=== PATIENT | female | born 1955 | race Caucasian/White ===

== ENCOUNTER 2019-04-14 20:15 | Emergency (ER) | payer OTHER ==
[~2019-04-14] VITALS: Ht 160 cm; Wt 86.2 kg
[~2019-04-14 20:15] MED LIST: ALBUTEROL2.5 MG/0.5 INH; ALEVE220 M1 PO; AMOXICILLIN 50500 M1 PO; ANAPROX DS550 MG PO; AVELOX 400 MG400 MG PO; BENADRYL25 MG PO; CLONAZEPAM 0.50.5 M1 PO; COUMADIN 10MG T10 M1 PO; DESYREL100 MG PO; DILAUDID 4 MG TA4 M1 PO; EFFEXOR XR75 MG PO; FLONASE 0.05%50 MCG NASAL; FOLIC ACID 1 MG1 MG PO; HYDROCHLOROTHIA25 M1 PO; KLOR-CON 1010 MEQ PO; LAMICTAL 25 MG25 MG PO; LAMICTAL ODT50 MG PO; LEVSIN0.125 MG PO; LISINOPRIL-HCT1 EAC1 PO; LISINOPRIL-HCT1 EAC2 PO; LOVENOX SUBQ; MEDROLDOSEPACK; MOBIC7.5 MG PO; MORPHINE SULFAT30 M4 PO; MS CONTIN30 MG PO; NAPROSYN500 MG PO; NORCO 5-325 TA1 EACH PO; OXYCODONE-ACET1 EACH PO; OXYCONTIN20 M1 PO; PAXIL10 MG; PEPCID AC20 MG PO; PERCOCET 10-321 EACH PO; PERCOCET 5-3251 EACH; PERCOCET 5-3251 EACH PO; PERCOCET PO; PRILOSEC 20 MG20 MG PO; PRISTIQ50 MG PO; RISPERDAL 1 MG T1 MG PO; RISPERIDONE0.5 MG PO; TESSALON PERLE100 MG PO; TINACTIN108 GM TOP; TOPAMAX100 MG PO; TRAZODONE HCL100 MG PO; VITAMIN B-12500 MCG PO; VITAMIN D32000 UNI1 PO; VOLTAREN GEL 1100 G2 TOP; XANAX 0.5 MG0.5 M1 PO; XANAX XR0.5 MG PO; ZOFRAN ODT4 MG PO; ZOFRAN4 MG PO
[2019-04-14 20:42] LABS: URINE BILIRUBIN NEGATIVE (Negative); URINE BLOOD NEGATIVE (Negative); URINE CLARITY CLEAR; URINE COLOR YELLOW; URINE GLUCOSE-RANDOM* NEGATIVE (Negative); URINE KETONES NEGATIVE (Negative); URINE NITRITE-REFLEX NEGATIVE (Negative); URINE PROTEIN (DIPSTICK) NEGATIVE (Negative); URINE UROBILINOGEN 0.2 E.U./dl (0.2-1.0)
[2019-04-14 20:44] LABS: URINE LEUKOCYTES-REFLEX 1+ (Negative)
[2019-04-14 20:54] LABS: BACTERIA-REFLEX None Seen /HPF (None Seen); CASTS None Seen /LPF (None Seen); CRYSTALS None Seen /LPF (None Seen); SQUAMOUS 4-10 Moderate /LPF (0-3); URINE RBC None Seen /HPF (0-2); URINE WBC-REFLEX 6-15 Few /HPF (0-5)
[2019-04-14] MEDS ORDERED: LYRICA150 MG PO (21:05)
[2019-04-14 21:21] LABS: BASOPHILS 0.9 % (0.0-2.0); EOSINOPHILS 0.9 % (0.0-3.0); HEMATOCRIT 43.9 % (37.0-47.0); HEMOGLOBIN 15.1 gm/dL (12.0-15.0); LYMPHOCYTES 29.8 % (24.0-44.0); MCH 32.9 pg (26.0-34.0); MCHC 34.3 g/dL (28.0-37.0); MONOCYTES 9.9 % (1.0-8.0); PLATELET COUNT 153 thou/uL (150-400); POLYS 58.5 % (36.0-66.0); RBC 4.58 mil/uL (4.20-5.00); RDW 13.3 % (10.5-14.5); WBC 6.9 thou/uL (4.0-11.0)
[2019-04-14 21:29] LABS: CALCIUM 9.3 mg/dL (8.5-10.1); CREATININE 1.4 mg/dL (0.6-1.0); POTASSIUM 3.5 mmol/L (3.5-5.1)
[2019-04-14 21:36] LABS: ALBUMIN 3.6 g/dL (3.4-5.0); TOTAL BILIRUBIN 0.4 mg/dL (<0.1-1.0); TOTAL PROTEIN 7.1 g/dL (6.4-8.2)
[2019-04-14] MEDS ORDERED: NAPROSYN500 MG PO (22:58)
[2019-04-15 00:19] VITALS: BP 151/80
== END 2019-04-15 | disposition home or self-care (01) ==
LOC: ER 20:15
PROVIDERS: Emergency Medicine; Physician Assistant
DX: N93.8 Other specified abnormal uterine and vaginal bleeding (principal); R10.2 Pelvic and perineal pain; F31.9 Bipolar disorder, unspecified; I10 Essential (primary) hypertension; M19.90 Unspecified osteoarthritis, unspecified site; J45.909 Unspecified asthma, uncomplicated; Z86.711 Personal history of pulmonary embolism; Z86.718 Personal history of other venous thrombosis and embolism; Z88.0 Allergy status to penicillin; Z88.1 Allergy status to other antibiotic agents

== ENCOUNTER 2019-05-13 21:17 | Emergency (ER) | payer OTHER ==
[~2019-05-13] VITALS: Ht 165.1 cm; Wt 72.6 kg
[~2019-05-13 21:17] MED LIST changes: +LYRICA150 MG PO
[2019-05-13 22:08] LABS: ABSOLUTE NEUTROPHILS 3.8 thou/uL (1.4-8.2); BASOPHILS 1.1 % (0.0-2.0); HEMATOCRIT 47.9 % (37.0-47.0); HEMOGLOBIN 16.1 gm/dL (12.0-15.0); LYMPHOCYTES 34.5 % (24.0-44.0); MCH 32.6 pg (26.0-34.0); MCHC 33.7 g/dL (28.0-37.0); MCV 96.7 fL (80.0-100.0); MONOCYTES 8.7 % (1.0-8.0); PLATELET COUNT 157 thou/uL (150-400); POLYS 54.7 % (36.0-66.0); RBC 4.95 mil/uL (4.20-5.00)
[2019-05-13 22:34] LABS: CALCIUM 9.7 mg/dL (8.5-10.1); CREATININE 1.2 mg/dL (0.6-1.0); POTASSIUM 3.2 mmol/L (3.5-5.1)
[2019-05-13 22:34] LABS: URINE BILIRUBIN NEGATIVE (Negative); URINE BLOOD NEGATIVE (Negative); URINE CLARITY CLEAR; URINE COLOR YELLOW; URINE GLUCOSE-RANDOM* NEGATIVE (Negative); URINE KETONES NEGATIVE (Negative); URINE LEUKOCYTES-REFLEX NEGATIVE (Negative); URINE NITRITE-REFLEX NEGATIVE (Negative); URINE PROTEIN (DIPSTICK) NEGATIVE (Negative); URINE SPECIFIC GRAVITY <= 1.005 (1.005-1.035); URINE UROBILINOGEN 0.2 E.U./dl (0.2-1.0)
[2019-05-13] MEDS ORDERED: IBUPROFEN 800800 M1 PO (23:10)
[2019-05-14 00:56] VITALS: BP 154/86
== END 2019-05-14 00:56 | disposition home or self-care (01) ==
LOC: ER 21:17
PROVIDERS: Nurse Practitioner Family
DX: R10.2 Pelvic and perineal pain (principal); R10.84 Generalized abdominal pain; F31.9 Bipolar disorder, unspecified; M19.90 Unspecified osteoarthritis, unspecified site; I10 Essential (primary) hypertension; J45.909 Unspecified asthma, uncomplicated; Z88.0 Allergy status to penicillin; Z88.1 Allergy status to other antibiotic agents; Z98.890 Other specified postprocedural states; Z86.711 Personal history of pulmonary embolism

== ENCOUNTER 2019-05-27 22:14 | Emergency (ER) | payer OTHER ==
[~2019-05-27] VITALS: Ht 160 cm; Wt 88.5 kg
[~2019-05-27 22:14] MED LIST changes: +IBUPROFEN 800800 M1 PO
[2019-05-27 23:25] LABS: ABSOLUTE NEUTROPHILS 2.8 thou/uL (1.4-8.2); BASOPHILS 0.7 % (0.0-2.0); EOSINOPHILS 1.9 % (0.0-3.0); HEMATOCRIT 45.7 % (37.0-47.0); HEMOGLOBIN 15.2 gm/dL (12.0-15.0); LYMPHOCYTES 39.5 % (24.0-44.0); MCHC 33.2 g/dL (28.0-37.0); MCV 96.4 fL (80.0-100.0); MONOCYTES 9.6 % (1.0-8.0); PLATELET COUNT 163 thou/uL (150-400); POLYS 48.3 % (36.0-66.0); RBC 4.74 mil/uL (4.20-5.00); RDW 13.1 % (10.5-14.5); WBC 5.8 thou/uL (4.0-11.0)
[2019-05-27 23:33] LABS: ANION GAP 5 mmol/L (7-16); BUN 21 mg/dL (7-18); CALCIUM 9.2 mg/dL (8.5-10.1); CHLORIDE 106 mmol/L (98-107); CO2 33 mmol/L (21-32); CREATININE 1.2 mg/dL (0.6-1.0); GLUCOSE 117 mg/dL (74-106); POTASSIUM 3.3 mmol/L (3.5-5.1); SODIUM 144 mmol/L (136-145)
[2019-05-27 23:45] LABS: ALBUMIN 3.4 g/dL (3.4-5.0); SGOT 18 U/L (15-37); SGPT 23 U/L (30-65); TOTAL BILIRUBIN 0.3 mg/dL (<0.1-1.0); TOTAL PROTEIN 6.4 g/dL (6.4-8.2); TROPONIN-I <0.06 ng/mL (<0.06)
[2019-05-27 23:49] LABS: URINE BILIRUBIN NEGATIVE (Negative); URINE BLOOD NEGATIVE (Negative); URINE CLARITY CLOUDY; URINE COLOR YELLOW; URINE GLUCOSE-RANDOM* NEGATIVE (Negative); URINE KETONES NEGATIVE (Negative); URINE LEUKOCYTES-REFLEX NEGATIVE (Negative); URINE NITRITE-REFLEX NEGATIVE (Negative); URINE PROTEIN (DIPSTICK) NEGATIVE (Negative); URINE UROBILINOGEN 0.2 E.U./dl (0.2-1.0)
[2019-05-28 00:45] LABS: AMP/METHAMP Negative (Negative); BARBITURATES Negative (Negative); BENZODIAZEPINES Negative (Negative); COCAINE Negative (Negative); METHADONE Negative (Negative); OPIATES Negative (Negative); PCP Negative (Negative)
[2019-05-28 01:40] VITALS: BP 118/61
--- NOTE | 2019-05-28 08:40 | EKG ---
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
== END 2019-05-28 01:50 | disposition home or self-care (01) ==
LOC: ER 22:14
PROVIDERS: Emergency Medicine
DX: R55 Syncope and collapse (principal); G89.29 Other chronic pain; R10.9 Unspecified abdominal pain; E87.6 Hypokalemia; F12.90 Cannabis use, unspecified, uncomplicated; C54.1 Malignant neoplasm of endometrium; J45.909 Unspecified asthma, uncomplicated; F31.9 Bipolar disorder, unspecified; I10 Essential (primary) hypertension; M19.90 Unspecified osteoarthritis, unspecified site; Z86.718 Personal history of other venous thrombosis and embolism; Z86.711 Personal history of pulmonary embolism; Z98.890 Other specified postprocedural states; Z88.1 Allergy status to other antibiotic agents; Z88.0 Allergy status to penicillin

== ENCOUNTER 2019-08-11 20:37 | Emergency (ER) | payer OTHER ==
[~2019-08-11] VITALS: Ht 162.6 cm; Wt 88.5 kg
[2019-08-11 21:15] LABS: ABSOLUTE NEUTROPHILS 2.5 thou/uL (1.4-8.2); BASOPHILS 0.7 % (0.0-2.0); HEMATOCRIT 45.4 % (37.0-47.0); HEMOGLOBIN 15.4 gm/dL (12.0-15.0); LYMPHOCYTES 38.9 % (24.0-44.0); POLYS 48.4 % (36.0-66.0); RBC 4.82 mil/uL (4.20-5.00); RDW 13.4 % (10.5-14.5); WBC 5.3 thou/uL (4.0-11.0)
[2019-08-11 21:30] LABS: ANION GAP 9 mmol/L (7-16); APTT 26.5 Seconds (24.5-32.8); BUN 18 mg/dL (7-18); CALCIUM 8.7 mg/dL (8.5-10.1); CHLORIDE 104 mmol/L (98-107); CO2 26 mmol/L (21-32); GLUCOSE 97 mg/dL (74-106); INR 1.1; POTASSIUM 4.3 mmol/L (3.5-5.1); PROTIME 11.5 Seconds (9.3-11.4); SODIUM 139 mmol/L (136-145)
[2019-08-11 21:39] LABS: AMP/METHAMP Negative (Negative); BARBITURATES Negative (Negative); BENZODIAZEPINES Negative (Negative); COCAINE Negative (Negative); METHADONE Negative (Negative); OPIATES Negative (Negative); PCP Negative (Negative)
[2019-08-11 21:39] LABS: ALBUMIN 3.3 g/dL (3.4-5.0); SGOT 31 U/L (15-37); SGPT 24 U/L (30-65); TOTAL BILIRUBIN 0.5 mg/dL (<0.1-1.0); TOTAL PROTEIN 6.9 g/dL (6.4-8.2); TROPONIN-I <0.06 ng/mL (<0.06)
[2019-08-11 22:10] LABS: PLATELET COUNT 68 thou/uL (150-400)
[2019-08-11 22:26] VITALS: BP 144/80
[2019-08-11] MEDS ORDERED: CATAPRES0.1 MG PO (22:49)
[2019-08-11] MEDS ORDERED: LISINOPRIL-HCT1 EAC2 PO (22:49)
--- NOTE | 2019-08-12 08:21 | EKG ---
[facility] [place] [address] ELECTROCARDIOGRAM REPORT Name: IVANA HURST Room #: DEP [facility]#: [id number] Admission: 08/11/19 Attend Phys: Discharge: 08/11/19 Date of : 57 Report #: [id number] THIS REPORT FOR: cc: Woody Arce MD, Kirk D. MD Couchonnal, Luis F. MD ~ THIS REPORT FOR: //name// [facility] ED Test Date: 2019-08-11 Test Time: 20:42:01 Pat Name: IVANA HURST Department: Room: Gender: Intelligence Intern: [facility] : 1955 Requested By: Alverto Mullins Order Number: [id number] MD: Madi Parham Measurements Intervals [place] Rate: 73 P: 39 AR: 126 QRS: 60 QRSD: 86 T: 38 QT: 385 QTc: 425 Interpretive Statements Sinus rhythm Compared to ECG 05/27/2019 23:02:13 No significant changes Electronically Signed On 08-12-2019 8:20:30 R&D LAB TECHNICIAN by Madi Parham [email or web address] <ELECTRONICALLY SIGNED> By: Madi Parham MD 08/12/19819 41 41 Madi Parham MD /EPI
== END 2019-08-11 23:01 | disposition home or self-care (01) ==
LOC: ER 20:37
PROVIDERS: Emergency Medicine
DX: I10 Essential (primary) hypertension (principal); R51 Headache; J45.909 Unspecified asthma, uncomplicated; F31.9 Bipolar disorder, unspecified; M19.90 Unspecified osteoarthritis, unspecified site; Z98.890 Other specified postprocedural states; Z88.0 Allergy status to penicillin; Z88.1 Allergy status to other antibiotic agents

== ENCOUNTER 2020-10-10 20:23 | Emergency (ER) | payer OTHER ==
[~2020-10-10] VITALS: Ht 160 cm; Wt 78.9 kg
[~2020-10-10 20:23] MED LIST changes: +CATAPRES0.1 MG PO
[2020-10-10 21:30] LABS: URINE BILIRUBIN NEGATIVE (Negative); URINE BLOOD NEGATIVE (Negative); URINE CLARITY CLEAR; URINE COLOR YELLOW; URINE GLUCOSE-RANDOM* NEGATIVE (Negative); URINE KETONES NEGATIVE (Negative); URINE LEUKOCYTES-REFLEX NEGATIVE (Negative); URINE NITRITE-REFLEX NEGATIVE (Negative); URINE PROTEIN (DIPSTICK) NEGATIVE (Negative); URINE SPECIFIC GRAVITY 1.015 (1.005-1.035)
[2020-10-10 21:42] LABS: ABSOLUTE NEUTROPHILS 2.1 thou/uL (1.4-8.2); BASOPHILS 1.2 % (0.0-2.0); EOSINOPHILS 1.1 % (0.0-3.0); HEMATOCRIT 40.6 % (37.0-47.0); HEMOGLOBIN 14.3 gm/dL (12.0-15.0); LYMPHOCYTES 33.5 % (24.0-44.0); MCH 33.4 pg (26.0-34.0); MCHC 35.3 g/dL (28.0-37.0); MCV 94.6 fL (80.0-100.0); MONOCYTES 11.3 % (1.0-8.0); PLATELET COUNT 130 thou/uL (150-400); POLYS 52.9 % (36.0-66.0); RBC 4.29 mil/uL (4.20-5.00); RDW 13.4 % (10.5-14.5); WBC 3.9 thou/uL (4.0-11.0)
[2020-10-10 21:51] LABS: CALCIUM 8.5 mg/dL (8.5-10.1); CREATININE 1.3 mg/dL (0.6-1.0); POTASSIUM 3.6 mmol/L (3.5-5.1)
[2020-10-10 21:57] LABS: ALBUMIN 3.4 g/dL (3.4-5.0); DIRECT BILIRUBIN 0.1 mg/dL (<0.1-0.2); TOTAL BILIRUBIN 0.6 mg/dL (0.2-1.0); TOTAL PROTEIN 6.4 g/dL (6.4-8.2)
[2020-10-11 00:31] VITALS: BP 126/74
--- NOTE | 2020-10-11 09:41 | EKG ---
[place] [address] [employer] [place] [address] ELECTROCARDIOGRAM REPORT Name: IVANA HURST [facility]: [facility] [id number] Admission: 10/10/20 Attend Phys: Discharge: 10/11/20 Date of : 57 Report #: [id number] [facility] ED Test Date: 2020-10-10 Test Time: 20:36:11 Pat Name: IVANA HURST Department: Room: Gender: F Information Assurance: JHOAN : 1955 Requested By: Katherine Braxton Order Number: [id number] MD: Mannie Alberts Measurements Intervals [place] Rate: 73 P: 30 [place]: 117 QRS: 44 QRSD: 83 T: 33 QT: 397 QTc: 438 Interpretive Statements Sinus rhythm Borderline short [place] interval Compared to ECG 08/11/2019 20:42:01 No significant changes Electronically Signed On 10-11-2020 9:41:25 CDT by Mannie Alberts [email or web address] <ELECTRONICALLY SIGNED> By: Mannie Alberts MD, [facility] 10/11/20 0941 35 35 Mannie Alberts MD, FACC /EPI
== END 2020-10-11 00:48 | disposition home or self-care (01) ==
LOC: ER 20:23
PROVIDERS: Emergency Medicine
DX: I95.1 Orthostatic hypotension (principal); R42 Dizziness and giddiness; I10 Essential (primary) hypertension; M19.90 Unspecified osteoarthritis, unspecified site; J45.909 Unspecified asthma, uncomplicated; Z88.0 Allergy status to penicillin; Z88.1 Allergy status to other antibiotic agents; Z79.899 Other long term (current) drug therapy; Z98.890 Other specified postprocedural states